=== PATIENT | female | born 1965 | race Caucasian/White ===

== ENCOUNTER → 2018-10-01 | Outpatient (REF) | payer OTHER ==
[2018-10-01 17:55] LABS: BASO # 0.1 10^3/uL (0.0-0.2); BASO % 1.3 % (0.0-1.0); EOS # 0.1 10^3/uL (0.0-0.50); EOS % 2.8 % (0.0-3.0); HEMATOCRIT 44.5 % (36.0-47.0); HEMOGLOBIN 14.2 g/dl (12.0-15.5); LYMPH # 1.4 10^3/uL (1.5-4.5); LYMPH % 30.8 % (24.0-44.0); MEAN CORPUSCULAR HEMOGLOBIN 29.2 pg (27.0-33.0); MEAN CORPUSCULAR HGB CONC 31.9 g/dl (32.0-36.5); MEAN CORPUSCULAR VOLUME 91.6 fl (80.0-96.0); MONO # 0.4 10^3/uL (0.0-0.8); NEUTROPHILS # 2.7 10^3/uL (1.8-7.7); NEUTROPHILS % 57.1 % (36.0-66.0); PLATELET COUNT, AUTOMATED 283 10^3/uL (150-450); RED BLOOD COUNT 4.86 10^6/uL (4.00-5.40); WHITE BLOOD COUNT 4.7 10^3/uL (4.0-10.0)
[2018-10-01 17:58] LABS: ALBUMIN 4.2 GM/DL (3.2-5.2); ALT/SGPT 28 U/L (12-78); BILIRUBIN,TOTAL 0.2 MG/DL (0.2-1.0); BLOOD UREA NITROGEN 15 MG/DL (7-18); CALCIUM LEVEL 9.6 MG/DL (8.5-10.1); CARBON DIOXIDE LEVEL 31 MEQ/L (21-32); CHLORIDE LEVEL 104 MEQ/L (98-107); CREATININE FOR GFR 0.82 MG/DL (0.55-1.30); GLOMERULAR FILTRATION RATE > 60.0 (>51); GLUCOSE, FASTING 79 MG/DL (70-100); POTASSIUM SERUM 3.8 MEQ/L (3.5-5.1); SODIUM LEVEL 141 MEQ/L (136-145); TOTAL PROTEIN 7.5 GM/DL (6.4-8.2)
[2018-10-01 18:16] LABS: FOLATE 15.9 NG/ML; VITAMIN B12 LEVEL 656 PG/ML
== END ==
LOC: M LABNEURO 14:44
PROVIDERS: ATTEND Psychiatry & Neurology Neurology
DX: G35 Multiple sclerosis (principal)

== ENCOUNTER → 2020-12-13 | Outpatient (CLI) | payer MEDICARE ==
--- NOTE | 2020-12-15 00:32 | ECWPNPC ---
PATIENT NAME: BERENICE KHALIL : 1965 GENDER: FEMALE VISIT DATE: 12/13/2020 DISCHARGE DATE: 12/13/20 0000 VISIT LOCKED DATE TIME: PHYSICIAN: ALLI JOHNSON RESOURCE: ALLI JOHNSON REASON FOR APPOINTMENT 1. BOTOX FOR MIGRAINES HISTORY OF PRESENT ILLNESS DEPRESSION SCREENING: PHQ-2 (2015 EDITION) LITTLE INTEREST OR PLEASURE IN DOING THINGS?NOT AT ALL FEELING DOWN, DEPRESSED, OR HOPELESS?NOT AT ALL TOTAL SCORE0 GENERAL: HPI 55-YEAR-OLD FEMALE IN FOR INITIAL PAIN CONSULT REGARDING BOTOX FOR HER MIGRAINES. PATIENT HAS HAD BOTOX INJECTIONS IN THE PAST AND THEY WERE SUCCESSFUL EVIDENCED BY DECREASED MIGRAINE HEADACHES. SHE RATES HER PAIN CURRENTLY AT A 3 OUT OF 10 BUT STATES THAT IT CAN GET HIGH A 10 OUT OF 10. SHE DESCRIBES HER PAIN SHARP, TENDER, THROBBING, AND TENSION.. - -. FALL RISK SCREENING: SCREENING : NO FALLS REPORTED IN THE LAST YEAR. PAIN SCREENING: PATIENT HAS A COMPLAINT OF ACUTE OR CHRONIC PAIN :YES LOCATION OF PAIN:HEAD, NECK, BOTH SHOULDERS INTENSITY OF PAIN (SCALE OF 1 TO 10):3 PAIN GETS HIGH A TEN. WHAT DOES YOUR PAIN FEEL LIKE:SHARP, TENDER, THROBBING, OTHER TENSION DURATION:INTERMITTENT PAIN IS INCREASED BY:ACTIVITIES NOISE, LIGHT PAIN IS DECREASED BY:USE OF PAIN MEDICATIONS JANEE, DULCEALT AND FIORECET NURSING NOTE: - -. PAIN CENTER INTAKE QUESTIONS: DO YOU HAVE A HISTORY OF MRSA? :NO DO YOU TAKE A BLOOD THINNERS? :NO DO YOU HAVE ANY BLEEDING DISORDERS? :NO ANY NEW NUMBNESS OR WEAKNESS IN YOUR LEGS OR ARMS? :NO ANY PACEMAKER,DEFIBRILLATOR, OR DORSAL COLUMN STIMULATOR? :NO DO YOU HAVE ANY RASHES OR OPEN SORES? :NO ARE YOU ALLERGIC TO IV DYE? :NO ARE YOU DIABETIC? :NO ANY NEW PROBLEMS WITH YOUR MEDICATIONS? :NO HAVE YOU RECEIVED A VACCINE IN THE PAST 30 DAYS? :NO SECOND COVID VACCINATION 10/07/2020 DO YOU PLAN TO RECEIVE A VACCINE IN THE NEXT 21 DAYS? :NO DO YOU NEED ANY PRESCRIPTION? :NO DO YOU TAKE ANY IMMUNOSUPPRESSIVE MEDICATIONS? :NO IS THERE A CHANCE YOU COULD BE ? :NO ARE YOU BREAST FEEDING? :NO CURRENT MEDICATIONS TAKING TECFIDERA 240 MG TABLET ORALLY TWICE A DAY TAKING ZONISAMIDE 50 MG CAPSULE 1 CAPSULE ORALLY DAILY IN THE MORNING TAKING ZONISAMIDE 100 MG CAPSULE 1 CAPSULE ORALLY BEFORE BEDTIME TAKING CYMBALTA 30 MG CAPSULE DELAYED RELEASE PARTICLES 1 CAPSULE ORALLY BID TAKING AMANTADINE HCL 100 MG CAPSULE 1 CAPSULE ORALLY BID TAKING DITROPAN XL 10 MG TABLET EXTENDED RELEASE 24 HOUR 1 TABLET ORALLY ONCE A DAY TAKING PAMELOR 10 MG CAPSULE 1 CAPSULE ORALLY TWICE DAILY AT HS TAKING ACETAMINOPHEN 500 MG CAPSULE 1 CAPSULE NEEDED ORALLY EVERY 6 HRS NEEDED MEDICATION LIST REVIEWED AND RECONCILED WITH THE PATIENT PAST MEDICAL HISTORY MULTIPLE SCLEROSIS MIGRAINE WITHOUT AURA MALAISE AND FATIGUE ALLERGIES N.K.D.A. SURGICAL HISTORY SALBADOR 12/03/05 FAMILY HISTORY FATHER: MOTHER: ALIVE SIBLINGS: ALIVE SON(S): ALIVE 2 BROTHER(S) , 1 SISTER(S) - HEALTHY. 2 SON(S) - HEALTHY. SOCIAL HISTORY GENERAL: TOBACCO USE ARE YOU A:NONSMOKER LATEX QUESTIONNAIRE LATEX ALLERGY : HAVE YOU EVER DEVELOPED ANY TYPE OF REACTION AFTER HANDLING LATEX PRODUCTS SUCH RUBBER GLOVES, CONDOMS, DIAPHRAGMS, BALLOONS, SOCKS, OR UNDERWEAR?NO LATEX ALLERGY : HAVE YOU EVER DEVELOPED ANY TYPE OF REACTION DURING OR AFTER DENTAL APPOINTMENT, VAGINAL/RECTAL EXAMINATION, SURGICAL PROCEDURE, OR ANY OTHER EXPOSURE?NO LATEX RISK : HAVE YOU EVER HAD ANY DIFFICULTY BREATHING OR HIVES AFTER EATING OR HANDLING ANY FRUITS, OR VEGETABLES; SUCH KIWI, BANANAS, STONE FRUITS, OR CHESTNUTSNO LATEX RISK : DO YOU HAVE A PREVIOUS PERSONAL HISTORY OF MORE THAN NINE SURGERIES, SPINA BIFIDA, OR REPEATED CATHERIZATIONS? NO LATEX RISK : ARE YOU FREQUENTLY EXPOSED TO LATEX PRODUCTS IN YOUR OCCUPATION?NO DATE ASKED : 12/13/2020 ALCOHOL USE: NO. RECREATIONAL DRUG USE DRUG USE?NO LANGUAGE LANGUAGES SPOKEN:MEXICAN EDUCATION LEVEL OF EDUCATION:PROFESSIONAL SCHOOLS/MASTERS/PHD LEARNING BARRIERS / SPECIAL NEEDS BARRIERS TO LEARNING?NO HEARING IMPAIRED?NO VISION IMPAIRED?NO COGNITIVELY IMPAIRED?NO READINESS TO LEARN?YES LEARNING PREFERENCES?NO LEARNING CAPABILITIES PRESENT?YES EMOTIONAL BARRIERS?NO SPECIAL DEVICES?NO COMMERCIAL DOOR INSTALLER NEEDED?NO HOSPITALIZATION/MAJOR DIAGNOSTIC PROCEDURE FOR SURGERY REVIEW OF SYSTEMS CONSTITUTIONAL: ANY RECENT FEVER NO . CHILLS NO . WEIGHT CHANGE OF UNKNOWN REASONS NO . MUSCULOSKELETAL: ANY UNUSUAL JOINT PAIN OR SWELLING NOT MENTIONED NO . SYSTEMIC LUPUS NO . ANY NEUROMUSCULAR DISORDER NOT MENTIONED NO . LYME DISEASE NO . GASTROENTEROLOGY: ANY NEW CHANGE IN BOWEL CONTROL? NO . HISTORY OF LIVER DISORDER NOT MENTIONED NO . HISTORY OF UNUSUAL ABDOMINAL PAIN OR CRAMPING NOT MENTIONED NO . NO CONSTIPATION. GENITOURINARY: ANY NEW CHANGE IN BLADDER CONTROL? NO . ANY RENAL/KIDNEY CONDITON NOT MENTIONED NO . NEUROLOGY: HISTORY OF TBI NOT MENTIONED NO . OTHER NEW NUMBNESS OR PAIN PATTERNS NOT MENTIONED NO . NEW ONSET DIZZINESS OR NEUROLOGICAL CHANGES NOT MENTIONED NO . HISTORY OF SEVERE HEADACHES NOT MENTIONED NO . HISTORY OF STROKE OR NEUROLOGICAL DISORDER NOT MENTIONED NO . CARDIOLOGY: HEART SURGERY NO . CONGESTIVE HEART FAILURE/FLUID OVERLOAD NOT MENTIONED NO . HISTORY OF CHEST PAIN,IRREGULAR HEART BEAT NOT MENTIONED NO . RESPIRATORY: SHORTNESS OF BREATH ON EXERTION, WHEEZES, UNUSUAL COUGH NOT MENTIONED NO . ENDOCRINOLOGY: ADRENAL GLAND OR THYROID DISORDERS NOT MENTIONED NO . UNUSUAL URINATION, DIZZINESS OR LETHARGY NOT MENTIONED NO . VITAL SIGNS WT 165.4 LBS, HT 70 IN, BMI 23.73 INDEX, BP 128/75 MM HG, HR 106 /MIN, RR 18 /MIN, TEMP 98.2 F, OXYGEN SAT % 94%, SAFE IN ENV? (Y/N) YES, NA INITIALS SD 13:22, REVIEWED BY: PAWEL MENESES MA. EXAMINATION GENERAL EXAMINATION: GENERALNO ACUTE DISTRESS, WELL NOURISHED AND HYDRATED. PSYCHAPPROPRIATE MOOD AND AFFECT . LUNGS:CLEAR TO AUSCULTATION BILATERALLY, NO WHEEZES, RHONCHI, RALES. HEART:NO MURMURS, REGULAR RATE AND RHYTHM. ASSESSMENTS MIGRAINE WITHOUT AURA AND WITH STATUS MIGRAINOSUS, NOT INTRACTABLE - G43.001 (PRIMARY) TREATMENT MIGRAINE WITHOUT AURA AND WITH STATUS MIGRAINOSUS, NOT INTRACTABLE NOTES: 55-YEAR-OLD FEMALE IN FOR INITIAL PAIN CONSULT REGARDING BOTOX INJECTIONS FOR HER MIGRAINES. GIVEN PRESENTING SYMPTOMS RECOMMEND BOTOX INJECTIONS WITH POST PROCEDURAL FOLLOW-UP. PATIENT HAS EXPRESSED UNDERSTANDING OF AND WAS IN AGREEMENT WITH TREATMENT PLAN. GIVEN TIME TO ASK QUESTIONS AND EXPRESS CONCERNS. OTHERS NOTES: PRINTED AND REVIEWED PRE PROCEDURE INFORMATION, PATIENT VERBALIZED UNDERSTANDING MOUNA RUBIO . PROCEDURE CODES [id number] ESTABILISHED PATIENT [facility] CHARGE DISPOSITION & COMMUNICATION FOLLOW UP POST PROCEDURE (REASON: BOTOX INJECTIONS OF 155 UNITS INTO BILATERAL GEOMETRICIAN, PROCERUS, FRONTALIS, TEMPORALIS, OCCIPITALIS, PARASPINAL AND TRAPEZIUS MUSCLES EVERY 3 MONTHS) ELECTRONICALLY SIGNED BY ANDERSON LOZA ON 12/14/2020 AT 01:29 PM EDT DISCLAIMER : THIS IS A VISIT SUMMARY EXTRACTED FROM THE [employer] CHART. IT IS NOT A COPY OF THE [employer] PROGRESS NOTE. CRISTIAN
== END ==
LOC: M PAIN 13:00
PROVIDERS: ATTEND Family Medicine
DX: G43.001 Migraine without aura, not intractable, with status migrainosus (principal); G35 Multiple sclerosis; R53.81 Other malaise; R53.83 Other fatigue; Z79.899 Other long term (current) drug therapy

== ENCOUNTER → 2021-01-14 | Outpatient (CLI) | payer MEDICARE | LOC: M LABSMTC 11:24 | PROVIDERS: ATTEND Anesthesiology | DX: Z01.818 Encounter for other preprocedural examination (principal); Z20.822 Contact with and (suspected) exposure to COVID-19 ==

== ENCOUNTER → 2021-01-19 | Outpatient (CLI) | payer MEDICARE, BC ==
[~2021-01-19] MED LIST: BOTOX THERAPEUTIC 100 UNIT VIAL (J0585 PER 1 UNIT) IM ONE; diazePAM 5MG TABLET As Ordered ONE
--- NOTE | 2021-01-21 03:11 | ECWPNPC ---
PATIENT NAME: BERENICE KHALIL : 1965 GENDER: FEMALE VISIT DATE: 01/19/2021 DISCHARGE DATE: 01/19/21 1243 VISIT LOCKED DATE TIME: PHYSICIAN: JOSE FRANCISCO HORAN MD RESOURCE: JOSE FRANCISCO HORAN MD REASON FOR APPOINTMENT 1. BOTOX HISTORY OF PRESENT ILLNESS GENERAL: HPI -.. - -. FALL RISK SCREENING: SCREENING : NO FALLS REPORTED IN THE LAST YEAR. PAIN SCREENING: PATIENT HAS A COMPLAINT OF ACUTE OR CHRONIC PAIN :YES LOCATION OF PAIN:HEAD, NECK, BOTH SHOULDERS INTENSITY OF PAIN (SCALE OF 1 TO 10):0 PAIN GETS HIGH A TEN. WHAT DOES YOUR PAIN FEEL LIKE:SHARP, TENDER, THROBBING, OTHER UP TO SEVERAL DAYS IN DURATION DURATION:INTERMITTENT PAIN IS INCREASED BY:ACTIVITIES NOISE, LIGHT PAIN IS DECREASED BY:USE OF PAIN MEDICATIONS DARKNESS, MAXALT AND FIORECET PLAN/GOALS/TREATMENT/INTERVENTION/FOLLOW UP:SEE PLAN NURSING NOTE: - -. PAIN CENTER INTAKE QUESTIONS: DO YOU HAVE A HISTORY OF MRSA? :NO DO YOU TAKE A BLOOD THINNERS? :NO DO YOU HAVE ANY BLEEDING DISORDERS? :NO ANY NEW NUMBNESS OR WEAKNESS IN YOUR LEGS OR ARMS? :NO ANY PACEMAKER,DEFIBRILLATOR, OR DORSAL COLUMN STIMULATOR? :NO DO YOU HAVE ANY RASHES OR OPEN SORES? :NO ARE YOU ALLERGIC TO IV DYE? :NO ARE YOU DIABETIC? :NO ANY NEW PROBLEMS WITH YOUR MEDICATIONS? :NO HAVE YOU RECEIVED A VACCINE IN THE PAST 30 DAYS? :NO DO YOU PLAN TO RECEIVE A VACCINE IN THE NEXT 21 DAYS? :NO DO YOU TAKE ANY IMMUNOSUPPRESSIVE MEDICATIONS? :NO ANY HISTORY OF SEIZURES? :NO ANY HISTORY OF CARDIAC ISSUES OR EVENTS? :NO DO YOU HAVE ANY KIDNEY OR LIVER DISEASE? :NO DO YOU HAVE SLEEP APNEA? :NO ANY RECENT HEAD INJURY? :NO DO YOU HAVE ANY NEW INFECTIONS? :NO IS THERE A CHANCE YOU COULD BE ? :NO ARE YOU BREAST FEEDING? :NO WHEN DID YOU LAST EAT? : ------0700 WHEN DID YOU LAST DRINK? : ----1030 WHAT DID YOU LAST DRINK? : -----WATER NAME OF PERSON DRIVING YOU HOME? : DO YOU HAVE ANY OTHER QUESTIONS OR CONCERNS? : NO CURRENT MEDICATIONS TAKING TECFIDERA 240 MG TABLET ORALLY TWICE A DAY TAKING ZONISAMIDE 50 MG CAPSULE 1 CAPSULE ORALLY DAILY IN THE MORNING TAKING ZONISAMIDE 100 MG CAPSULE 1 CAPSULE ORALLY BEFORE BEDTIME TAKING CYMBALTA 30 MG CAPSULE DELAYED RELEASE PARTICLES 1 CAPSULE ORALLY BID TAKING AMANTADINE HCL 100 MG CAPSULE 1 CAPSULE ORALLY BID TAKING PAMELOR 10 MG CAPSULE 1 CAPSULE ORALLY TWICE DAILY AT HS TAKING BOTOX 100 UNIT SOLUTION RECONSTITUTED FOR IM INJECTION AT THE HEAD, NECK AND SHOULDER MUSCLES ICD G43.709 BOTOX SCHEDULED 01/19/2021 AT 10:40 AM. TAKING [id number] 50-300-40 MG CAPSULE 1 CAPSULE NEEDED ORALLY EVERY 4 HRS NOT-TAKING DITROPAN XL 10 MG TABLET EXTENDED RELEASE 24 HOUR 1 TABLET ORALLY ONCE A DAY NOT-TAKING ACETAMINOPHEN 500 MG CAPSULE 1 CAPSULE NEEDED ORALLY EVERY 6 HRS NEEDED PAST MEDICAL HISTORY MULTIPLE SCLEROSIS MIGRAINE WITHOUT AURA MALAISE AND FATIGUE ALLERGIES N.K.D.A. SOCIAL HISTORY GENERAL: TOBACCO USE ARE YOU A:NONSMOKER LATEX QUESTIONNAIRE LATEX ALLERGY : HAVE YOU EVER DEVELOPED ANY TYPE OF REACTION AFTER HANDLING LATEX PRODUCTS SUCH RUBBER GLOVES, CONDOMS, DIAPHRAGMS, BALLOONS, SOCKS, OR UNDERWEAR?NO LATEX ALLERGY : HAVE YOU EVER DEVELOPED ANY TYPE OF REACTION DURING OR AFTER DENTAL APPOINTMENT, VAGINAL/RECTAL EXAMINATION, SURGICAL PROCEDURE, OR ANY OTHER EXPOSURE?NO LATEX RISK : HAVE YOU EVER HAD ANY DIFFICULTY BREATHING OR HIVES AFTER EATING OR HANDLING ANY FRUITS, OR VEGETABLES; SUCH KIWI, BANANAS, STONE FRUITS, OR CHESTNUTSNO LATEX RISK : DO YOU HAVE A PREVIOUS PERSONAL HISTORY OF MORE THAN NINE SURGERIES, SPINA BIFIDA, OR REPEATED CATHERIZATIONS? NO LATEX RISK : ARE YOU FREQUENTLY EXPOSED TO LATEX PRODUCTS IN YOUR OCCUPATION?NO DATE ASKED : 01/18/2021 ALCOHOL USE: NO. RECREATIONAL DRUG USE DRUG USE?NO ISLAM [id number] DANISH ANABAPTISM LANGUAGE LANGUAGES SPOKEN:PUERT[place] RICAN EDUCATION LEVEL OF EDUCATION:PROFESSIONAL SCHOOLS/MASTERS/PHD LEARNING BARRIERS / SPECIAL NEEDS BARRIERS TO LEARNING?NO HEARING IMPAIRED?NO VISION IMPAIRED?NO COGNITIVELY IMPAIRED?NO READINESS TO LEARN?YES LEARNING PREFERENCES?NO LEARNING CAPABILITIES PRESENT?YES EMOTIONAL BARRIERS?NO SPECIAL DEVICES?NO PLANT GUARD NEEDED?NO VITAL SIGNS WT 167 LBS, HT 70 IN, BMI 23.96 INDEX, BP 122/59 MM HG, HR 105 /MIN, RR 18 /MIN, TEMP 97.8 F, OXYGEN SAT % 98%, NA INITIALS SC 10:49. EXAMINATION GENERAL: A HISTORY AND PHYSICAL EXAM ON THE PATIENT WAS DONE ON 12/13/2020 (DATE OF ORIGINAL ASSESSMENT) IN PREPARATION OF SURGERY/PROCEDURE. I HAVE NOW REASSESSED THIS PATIENT'S HEALTH STATUS AND PERFORMED AN UPDATED EXAM TODAY. ALL CHANGES IN THE PATIENT'S HISTORY, PHYSICAL EXAM, PRE-EXISTING CONDITONS, AND INDICATIONS/CONTRAINDICATIONS TO THE PLANNED PROCEDURE AND ANESTHESIA ARE DOCUMENTED AND EVALUATED BELOW. I ATTEST TO THE ADEQUACY AND APPROPRIATENESS OF MY ASSESSMENT, AND CONFIRM THE NECESSITY FOR THE PLANNED PROCEDURE. THE PATIENT IS ALERT, ORIENTED TIMES THREE AND COOPERATIVE. LUNGS ARE CLEAR TO AUSCULTATION. HEART SHOWS REGULAR RHYTHM, NO MURMURS AND NO GALLOPS. ASSESSMENTS CHRONIC MIGRAINE - G43.709 (PRIMARY) TREATMENT CHRONIC MIGRAINE MEDICATION: PAIN VALIUM TAB 10MG ORALLY (DIAZEPAM)MURRAY CORCORAN 01/19/2021 11:33:38 AM > VERIFIED ADRI KIRBY 01/19/2021 11:41:22 AM > GIVEN COMPLETION OF PROCEDURAL VISIT WHEN MEETS CRITERIAMURRAY CORCORAN 01/19/2021 12:49:53 PM > 1245 CRITERIA MET OTHERS NOTES: 01/18/21 PAT COMPLETED. Lamin BRIONES RN BSN. PROCEDURES PAIN NURSING RECORD PROCEDURE IN ROOM 1045, PHYSICIAN IN ROOM 1211, START 1213, FINISH 1227, PHYSICIAN OUT OF ROOM 1228, OUT OF ROOM 1245, ECG N/A, PATIENT SHIELDED N/A, SAFETY STRAP N/A, PREP ALCOHOL DR. HORAN, DRESSING N/A LOC: 1. ALERT, ORIENTED RESP: 1. REGULAR, NO DYSPNEA ADRI KIRBY 01/19/2021 12:00:22 PM > COLOR: 1. PINK ADRI KIRBY 01/19/2021 12:00:30 PM > SKIN: 1. WARM, DRY ADRI KIRBY 01/19/2021 12:00:47 PM > POSITION: 5. SITTING 2. SUPINE VITALS: GAVE VALIUM 131/65 77 98% ON RA 18 RESP 01/19/2021 1244 117/61-94-18-97% NOTES Claribel KIRBY RN COMPLETION OF PROCEDURE APPOINTMENT: POST PAIN 0, DRESSING SITE NO DRESSING, IV N/A, GAIT STEADY, TEACHING COMPLETED, PATIENT ACKNOWLEDGES UNDERSTANDING YES PATIENT VERBALIZES UNDERSATNDING OF POST PROCEDURE INSTRUCTIONS REVIEWED, PROCEDURE APPOINTMENT COMPLETED AT 1245 BY: Rach MATOS RN PN BOTOX INJECTIONS FIRST INJECTION PRE PROCEDURE DIAGNOSIS CHRONIC MIGRAINE HEADACHES POST PROCEDURE DIAGNOSIS CHRONIC MIGRAINE HEADACHES PROCEDURE BOTOX INJECTION AT THE HEAD, NECK AND SHOULDERS SURGEON DR. JOSE FRANCISCO HORAN DRUM SANDER OFFBEARER NONE ANESTHESIA NONE PRE PROCEDURE NOTE THE PATIENT HAS HISTORY OF CHRONIC MIGRAINE HEADACHES. I EVALUATED THE PATIENT AND REVIEWED THE CHART. I WENT OVER THE RISKS, ALTERNATIVES, AND BENEFITS ASSOCIATED WITH THIS PROCEDURE. THE PATIENT WOULD LIKE TO PROCEED AND GAVE CONSENT TO PERFORM THE PROCEDURE. THE PATIENT DENIES UNEXPLAINABLE WEIGHT LOSS, FEVER, CHILLS, OR NEW CHANGES IN URINARY OR BOWEL CONTROL. SHE HAS BEEN SURFFERING FROM CHRONIC MIGRAINES FOR MANY YEARS. SHE HAS HAD BOTOX INJECTIONS IN THE PAST. SHE HAS NOT RECIEVED THEM FOR OVER 6 MONTHS. SHE IS HAVING HEADACHES EVERY DAY. SHE IS AT OUR FACILITY TODAY TO HAVE BOTOX. THE PATIENT HAS USED THE MEDICATIONS LISTED IN THE CHART TO TREAT THE HEADACHES FOR MANY MONTHS BUT THE HEADACHES PERSIST DESCRIBED ABOVE. THE PATIENT IS COVID-19 NEGATIVE DESCRIPTION OF PROCEDURE THE PATIENT WAS BROUGHT TO THE PROCEDURE ROOM AND PLACED IN THE SUPINE POSITION. A TIMEOUT WAS PERFORMED WHERE THE CONSENTED SITE WAS VERIFIED WITH EVERYONE IN THE ROOM FOR THE PROCEDURE I USED A SOLUTION OF 5 UNITS OF BOTOX PER EACH 0.1 ML OF THE SOLUTION. I USED A 30-GAUGE NEEDLE TO INJECT THE SOLUTION AT THE SELECTED LOCATIONS. I INJECTED FIRST THE RIGHT AND LEFT LABORER CHEESEMAKING MUSCLES. THE LANDMARK FOR BOTH INJECTIONS WAS APPROXIMATELY 1 CM ABOVE THE SUPERIOR MEDIAL EDGE OF THE EYEBROW. AFTER THESE TWO INJECTIONS, I INJECTED THE PROCERUS MUSCLE AT THE MIDLINE POINT BETWEEN THESE FIRST TWO INJECTIONS. THEN I PROCEEDED TO INJECT THE RIGHT AND LEFT FRONTALIS MUSCLE. TWO INJECTIONS WERE DONE IN EACH SIDE. THE FIRST INJECTION WAS DONE APPROXIMATELY 2 CM ABOVE THE FIRST INJECTION OF THE LABORER CHEESEMAKING. THE SECOND INJECTION WAS DONE APPROXIMATELY 1.5 CM LATERAL TO THIS FIST INJECTION OF THE FRONTALIS OF EACH SIDE. AFTER THE INJECTIONS OVER THE FOREHEAD WERE DONE, THE PATIENT'S HEAD WAS TURNED TO THE LEFT SIDE AND WE STARTED TO WORK WITH THE RIGHT TEMPORALIS MUSCLE. FIRST INJECTION WAS DONE IN A VERTICAL LINE OF THE TRAGUS APPROXIMATELY 3 CM ABOVE THE TRAGUS. THE SECOND INJECTION WAS DONE APPROXIMATELY 2 CM ABOVE THE FIRST INJECTION. THE THIRD INJECTION WAS DONE APPROXIMATELY 1 CM FORWARD FROM THIS VERTICAL LINE CREATED AT THE LEVEL OF THE TRAGUS, MCC BETWEEN THESE TWO INJECTIONS. THE FOURTH INJECTION WAS DONE APPROXIMATELY 1.5 CM BACK FROM THE SECOND INJECTION TO THE TEMPORALIS IN LINE TO THE MIDPORTION OF THE EAR. THEN, WE PROCEEDED TO INJECT THE LEFT TEMPORALIS MUSCLE. WE CLEANED THE AREA WITH ALCOHOL AND PROCEEDED TO PERFORM THE SAME FOR INJECTIONS DESCRIBED ABOVE BUT IN THE LEFT TEMPORALIS MUSCLE USING THE SAME LANDMARKS. AFTER THESE INJECTIONS WERE DONE, THE PATIENT WAS SEATED. FIRST, WE STARTED TO INJECT THE LEFT AND RIGHT OCCIPITALIS MUSCLE. I INJECTED AT THE FOLLOWING PLACES IN THE RIGHT AND LEFT MUSCLE. THE FIRST INJECTION WAS DONE AT THE MIDPOINT POSITION BETWEEN THE MASTOID PROCESS AND THE INION OF THE OCCIPITAL PROTUBERANCE. THE SECOND INJECTION WAS DONE APPROXIMATELY 1.5 CM SUPERIOR AND LATERAL OF THIS POINT. THE THIRD INJECTION WAS DONE APPROXIMATELY 1.5 CM SUPERIOR AND MEDIAL TO THIS FIRST INJECTION. NEXT, I PROCEEDED TO INJECT THE RIGHT AND LEFT PARASPINAL MUSCLES. LANDMARK OF THE INJECTION WERE APPROXIMATELY: FIRST INJECTION 3 CM BELOW THE INION AND 1 CM LATERAL TO THE MIDLINE AND SECOND INJECTION AT EACH SIDE WAS DONE APPROXIMATELY 1.5 CM SUPERIOR AND LATERAL OF THE FIRST INJECTION. THE LAST GROUP OF INJECTIONS WAS DONE OVER THE RIGHT AND LEFT TRAPEZIUS MUSCLE OVER THE SHOULDERS AREA. THE FIRST INJECTION WAS DONE AT THE MIDPOINT BETWEEN THE INFLECTION POINT BETWEEN THE NECK AND SHOULDER AND THE ACROMION. THE SECOND AND THIRD INJECTIONS WERE DONE APPROXIMATELY 2.5 CM LATERAL AND MEDIAL FROM THIS FIRST INJECTION. SAME TARGETS WERE USED IN THE RIGHT AND LEFT SIDE. IN TOTAL, I INJECTED 155 UNITS OF BOTOX. THE MEDICATIONS WERE VERIFIED WITH THE NURSE. PROCEDURE WAS DONE WITHOUT EVIDENCE OF PARESTHESIA OR ANY COMPLICATIONS. THE PATIENT TOLERATED THE PROCEDURE VERY WELL. ESTIMATED BLOOD LOSS WAS LESS THAN 5 ML. THE PATIENT WAS SENT TO THE RECOVERY ROOM FOR OBSERVATIONS. INJECTIONS WERE DONE AFTER CLEANING WITH ALCOHOL, USING ASEPTIC TECHNIQUES POST PROCEDURE NOTE THE PROCEDURE DONE WAS DISCUSSED WITH THE PATIENT. THE PATIENT WILL BE SEEN IN A FOLLOW UP IN THE NEXT FEW WEEKS. I AM LOOKING FOR LONG LASTING PAIN RELIEF FOR THE PATIENT WITH THIS INTERVENTION. INSTRUCTIONS WERE GIVEN, QUESTIONS WERE ANSWERED, AND THE PATIENT EXPRESSED UNDERSTANDING AND AGREES WITH THE PLAN. I, SILVINO HANSEN, DOCUMENTED THE ABOVE INFORMATION ACTING A SCRIBE FOR DR. HORAN. I HAVE REVIEWED THE ABOVE DOCUMENT, WRITTEN BY SILVINO HANSEN, PUBLICATIONS MANAGER, AND I VERIFY THAT IT IS ACCURATE PROCEDURE CODES 33406 CHEMODENERV MUSC MIGRAINE DISPOSITION & COMMUNICATION FOLLOW UP FOLLOW UP WITH MARKER MAKER (REASON: POST BOTOX INJECTIONS TO HEAD, NECK AND SHOULDER AREA) ELECTRONICALLY SIGNED BY JOSE FRANCISCO HORAN MD, MD ON 01/20/2021 AT 03:49 PM EDT DISCLAIMER : THIS IS A VISIT SUMMARY EXTRACTED FROM THE [employer] CHART. IT IS NOT A COPY OF THE [employer] PROGRESS NOTE. CRISTIAN
== END ==
LOC: M PAIN 10:40
PROVIDERS: ATTEND Anesthesiology
DX: G43.709 Chronic migraine without aura, not intractable, without status migrainosus (principal); G35 Multiple sclerosis; Z79.899 Other long term (current) drug therapy
CPT/HCPCS: 64615; J0585

== ENCOUNTER → 2021-02-09 | Outpatient (CLI) | payer MEDICARE ==
--- NOTE | 2021-02-11 07:33 | ECWPNPC ---
PATIENT NAME: BERENICE KHALIL : 1965 GENDER: FEMALE VISIT DATE: 02/09/2021 DISCHARGE DATE: 02/09/21 1428 VISIT LOCKED DATE TIME: PHYSICIAN: ALLI JOHNSON RESOURCE: ALLI JOHNSON REASON FOR APPOINTMENT 1. POST BOTOX HISTORY OF PRESENT ILLNESS GENERAL: HPI 55-YEAR-OLD FEMALE IN FOR POST BOTOX INJECTION FOLLOW-UP. PATIENT REPORTS A SIGNIFICANT DECREASE IN HER MIGRAINES SINCE INJECTIONS. SHE RATES HER PAIN CURRENTLY AT A 2 OUT OF 10 DESCRIBES IT THROBBING.. -. FALL RISK SCREENING: SCREENING : NO FALLS REPORTED IN THE LAST YEAR. PAIN SCREENING: PATIENT HAS A COMPLAINT OF ACUTE OR CHRONIC PAIN :YES LOCATION OF PAIN:NECK INTENSITY OF PAIN (SCALE OF 1 TO 10):2 WHAT DOES YOUR PAIN FEEL LIKE:THROBBING DURATION:INTERMITTENT PAIN IS INCREASED BY:OTHERS LIGHTS, NOISES, WEATHER, DEHYDRATION PAIN IS DECREASED BY:USE OF PAIN MEDICATIONS, OTHERS DARKNESS, MAXALT, FIORICET, REST, EYE MASK, QUIET NURSING NOTE: -. PAIN CENTER INTAKE QUESTIONS: DO YOU HAVE A HISTORY OF MRSA? :NO DO YOU TAKE A BLOOD THINNERS? :NO DO YOU HAVE ANY BLEEDING DISORDERS? :NO ANY NEW NUMBNESS OR WEAKNESS IN YOUR LEGS OR ARMS? :NO ANY PACEMAKER,DEFIBRILLATOR, OR DORSAL COLUMN STIMULATOR? :NO DO YOU HAVE ANY RASHES OR OPEN SORES? :NO ARE YOU ALLERGIC TO IV DYE? :NO ARE YOU DIABETIC? :NO ANY NEW PROBLEMS WITH YOUR MEDICATIONS? :NO HAVE YOU RECEIVED A VACCINE IN THE PAST 30 DAYS? :NO DO YOU PLAN TO RECEIVE A VACCINE IN THE NEXT 21 DAYS? :NO DO YOU NEED ANY PRESCRIPTION? :NO DO YOU TAKE ANY IMMUNOSUPPRESSIVE MEDICATIONS? :NO DO YOU HAVE ANY KIDNEY OR LIVER DISEASE? :NO IS THERE A CHANCE YOU COULD BE ? :NO ARE YOU BREAST FEEDING? :NO CURRENT MEDICATIONS TAKING TECFIDERA 240 MG TABLET ORALLY TWICE A DAY TAKING ZONISAMIDE 50 MG CAPSULE 1 CAPSULE ORALLY DAILY IN THE MORNING TAKING ZONISAMIDE 100 MG CAPSULE 1 CAPSULE ORALLY BEFORE BEDTIME TAKING CYMBALTA 30 MG CAPSULE DELAYED RELEASE PARTICLES 1 CAPSULE ORALLY BID TAKING AMANTADINE HCL 100 MG CAPSULE 1 CAPSULE ORALLY BID TAKING PAMELOR 10 MG CAPSULE 1 CAPSULE ORALLY BID TAKING BOTOX 100 UNIT SOLUTION RECONSTITUTED FOR IM INJECTION AT THE HEAD, NECK AND SHOULDER MUSCLES ICD G43.709 BOTOX SCHEDULED 01/19/2021 AT 10:40 AM. TAKING [id number] 50-300-40 MG CAPSULE 1 CAPSULE NEEDED ORALLY EVERY 4 HRS TAKING MAXALT 10 MG TABLET 1 TABLET ORALLY ONCE A DAY NEEDED NOT-TAKING DITROPAN XL 10 MG TABLET EXTENDED RELEASE 24 HOUR 1 TABLET ORALLY ONCE A DAY NOT-TAKING ACETAMINOPHEN 500 MG CAPSULE 1 CAPSULE NEEDED ORALLY EVERY 6 HRS NEEDED MEDICATION LIST REVIEWED AND RECONCILED WITH THE PATIENT PAST MEDICAL HISTORY MULTIPLE SCLEROSIS MIGRAINE WITHOUT AURA MALAISE AND FATIGUE ALLERGIES N.K.D.A. SOCIAL HISTORY GENERAL: TOBACCO USE ARE YOU A:NONSMOKER LATEX QUESTIONNAIRE LATEX ALLERGY : HAVE YOU EVER DEVELOPED ANY TYPE OF REACTION AFTER HANDLING LATEX PRODUCTS SUCH RUBBER GLOVES, CONDOMS, DIAPHRAGMS, BALLOONS, SOCKS, OR UNDERWEAR?NO LATEX ALLERGY : HAVE YOU EVER DEVELOPED ANY TYPE OF REACTION DURING OR AFTER DENTAL APPOINTMENT, VAGINAL/RECTAL EXAMINATION, SURGICAL PROCEDURE, OR ANY OTHER EXPOSURE?NO LATEX RISK : HAVE YOU EVER HAD ANY DIFFICULTY BREATHING OR HIVES AFTER EATING OR HANDLING ANY FRUITS, OR VEGETABLES; SUCH KIWI, BANANAS, STONE FRUITS, OR CHESTNUTSNO LATEX RISK : DO YOU HAVE A PREVIOUS PERSONAL HISTORY OF MORE THAN NINE SURGERIES, SPINA BIFIDA, OR REPEATED CATHERIZATIONS? NO LATEX RISK : ARE YOU FREQUENTLY EXPOSED TO LATEX PRODUCTS IN YOUR OCCUPATION?NO DATE ASKED : 01/18/2021 ALCOHOL USE: NO. RECREATIONAL DRUG USE DRUG USE?NO [employer] [id number] [employer] LANGUAGE LANGUAGES SPOKEN:UPPER SORBIAN EDUCATION LEVEL OF EDUCATION:PR[employer]ESSIONAL SCHOOLS/MASTERS/PHD LEARNING BARRIERS / SPECIAL NEEDS CHANGE FROM LAST VISIT?NO BARRIERS TO LEARNING?NO HEARING IMPAIRED?NO VISION IMPAIRED?NO COGNITIVELY IMPAIRED?NO READINESS TO LEARN?YES LEARNING PREFERENCES?NO LEARNING CAPABILITIES PRESENT?YES EMOTIONAL BARRIERS?NO SPECIAL DEVICES?NO WINDOW SHADE ESTIMATOR NEEDED?NO REVIEW OF SYSTEMS CONSTITUTIONAL: ANY RECENT FEVER NO . CHILLS NO . WEIGHT CHANGE OF UNKNOWN REASONS NO . GASTROENTEROLOGY: NEW UNEXPLAINABLE CHANGES IN BOWEL CONTROL NO . CONSTIPATION NO . GENITOURINARY: ANY NEW CHANGE IN BLADDER CONTROL? NO . NEUROLOGY: NEW ONSET DIZZINESS OR NEUROLOGICAL CHANGES NOT MENTIONED NO . NEW NUMBNESS OR PAIN PATTERNS NOT MENTIONED AND PERTINENT TO TODAY'S VISIT NO . CARDIOLOGY: NEW CHEST PRESSURE NO . PATIENT DENIES NO . RESPIRATORY: UNEXPLAINABLE COUGH NO . NEW SHORTNESS OF BREATH NO . VITAL SIGNS WT 167.8 LBS, HT 70 IN, BMI 24.07 INDEX, BP 130/72 MM HG, HR 97 /MIN, RR 18 /MIN, TEMP 98.3 F, OXYGEN SAT % 97%, SAFE IN ENV? (Y/N) YES, REVIEWED BY: Teresa ROSARIO RN. EXAMINATION GENERAL EXAMINATION: GENERALNO ACUTE DISTRESS, WELL NOURISHED AND HYDRATED. PSYCHAPPROPRIATE MOOD AND AFFECT . LUNGS:CLEAR TO AUSCULTATION BILATERALLY, NO WHEEZES, RHONCHI, RALES. HEART:NO MURMURS, REGULAR RATE AND RHYTHM. ASSESSMENTS OTHER CHRONIC PAIN - G89.29 (PRIMARY) MIGRAINE WITHOUT AURA AND WITH STATUS MIGRAINOSUS, NOT INTRACTABLE - G43.001, RISK: (NULL) TREATMENT OTHER CHRONIC PAIN PAIN PROCEDURE LOGDATE OF [id number]/2021PROCEDURE:BOTOX INJECTIONS TO HEAD, NECK, AND SHOULDERSAMOUNT OF PRE SEDATEVALIUM 10MGRESULT:PATIENT REPORTS SIGNIFICANT DECREASE IN HER MIGRAINES. MIGRAINE WITHOUT AURA AND WITH STATUS MIGRAINOSUS, NOT INTRACTABLE NOTES: 55-YEAR-OLD FEMALE IN FOR POST BOTOX INJECTION FOLLOW-UP. GIVEN PRESENTING SYMPTOMS RECOMMEND FOLLOW-UP IN 3 MONTHS FOR BOTOX INJECTIONS. PATIENT IS EXPRESSED UNDERSTANDING OF AND WAS IN AGREEMENT WITH TREATMENT PLAN. GIVEN TIME TO ASK QUESTIONS AND EXPRESS CONCERNS. PROCEDURE CODES FA211 ESTABILISHED PATIENT [facility] CHARGE DISPOSITION & COMMUNICATION FOLLOW UP 3 MONTHS (REASON: BOTOX INJECTION ) ELECTRONICALLY SIGNED BY ANDERSON LOZA ON 02/10/2021 AT 10:35 AM EDT DISCLAIMER : THIS IS A VISIT SUMMARY EXTRACTED FROM THE [employer] CHART. IT IS NOT A COPY OF THE [employer] PROGRESS NOTE. MTDD
== END ==
LOC: M PAIN 14:00
PROVIDERS: ATTEND Family Medicine
DX: G89.29 Other chronic pain (principal); G43.001 Migraine without aura, not intractable, with status migrainosus; G35 Multiple sclerosis; R53.83 Other fatigue; R53.81 Other malaise; Z79.899 Other long term (current) drug therapy

== ENCOUNTER → 2021-04-27 | Outpatient (CLI) | payer MEDICARE | LOC: M LABSMTC 11:54 | PROVIDERS: ATTEND Anesthesiology | DX: Z20.822 Contact with and (suspected) exposure to COVID-19 (principal) ==

== ENCOUNTER → 2021-05-02 | Outpatient (CLI) | payer MEDICARE ==
[~2021-05-02] MED LIST changes: -diazePAM 5MG TABLET As Ordered ONE
== END ==
LOC: M PAIN 10:40
PROVIDERS: ATTEND Anesthesiology
DX: G43.709 Chronic migraine without aura, not intractable, without status migrainosus (principal); G35 Multiple sclerosis; Z79.899 Other long term (current) drug therapy
CPT/HCPCS: 64615; J0585

== ENCOUNTER → 2021-06-01 | Outpatient (CLI) | payer MEDICARE | LOC: M PAIN 11:30 | PROVIDERS: ATTEND Anesthesiology | DX: G89.29 Other chronic pain (principal); G43.909 Migraine, unspecified, not intractable, without status migrainosus; G35 Multiple sclerosis; R53.83 Other fatigue; R53.81 Other malaise; Z79.899 Other long term (current) drug therapy ==

== ENCOUNTER → 2021-09-12 | Outpatient (CLI) | payer MEDICARE | LOC: M PAIN 10:40 | PROVIDERS: ATTEND Anesthesiology | DX: G43.709 Chronic migraine without aura, not intractable, without status migrainosus (principal); G35 Multiple sclerosis; R53.81 Other malaise; R53.83 Other fatigue; Z79.899 Other long term (current) drug therapy | CPT/HCPCS: 64615; J0585 ==

== ENCOUNTER 2023-08-15 09:10 | Outpatient (CLI) | payer MEDICARE, BC, OTHER ==
[~2023-08-15] VITALS: Ht 177.8 cm; Wt 77.7 kg
[2023-08-15] MEDS ORDERED: diphenhydrAMINE 25MG CAP PO ONE (09:30)
[2023-08-15] MEDS ORDERED: methylPREDNISolone 125MG 2ML VIAL IV ONE (09:30)
[2023-08-15] MEDS ORDERED: OCRELIZUMAB 300 MG in NS 250 ML IV ONE (09:30)
[2023-08-15] MEDS ORDERED: ACETAMINOPHEN TAB 650MG DOSE (2X325MG) PO ONE (09:30)
[2023-08-15 09:40] VITALS: BP 129/71; O2SAT 97
[2023-08-15 11:00] VITALS: BP 118/64; O2SAT 100
[2023-08-15 11:30] VITALS: BP 126/70; O2SAT 99
[2023-08-15 12:00] VITALS: BP 147/79; O2SAT 97
[2023-08-15 13:00] VITALS: BP 125/58; O2SAT 98
[2023-08-15 14:10] VITALS: BP 118/58; O2SAT 100
== END 2023-08-15 14:10 ==
LOC: M INFU 09:10
PROVIDERS: ATTEND Psychiatry & Neurology Neurology
DX: G35 Multiple sclerosis (principal)
CPT/HCPCS: 96365; 96366; 96375; J2350; J2930

== ENCOUNTER 2023-08-29 10:00 | Outpatient (CLI) | payer MEDICARE, BC ==
[~2023-08-29] VITALS: Ht 177.8 cm; Wt 77.3 kg
[2023-08-29 10:37] VITALS: BP 144/77; TEMP 97; O2SAT 97
[2023-08-29] MEDS: methylPREDNISolone 125MG 2ML VIAL IV ONE (10:46)
[2023-08-29] MEDS: ACETAMINOPHEN TAB 650MG DOSE (2X325MG) PO ONE (10:47)
[2023-08-29] MEDS: diphenhydrAMINE 25MG CAP PO ONE (10:47)
[2023-08-29] MEDS: OCRELIZUMAB 300 MG in NS 250 ML IV ONE (10:48)
[2023-08-29 11:30] VITALS: BP 130/69; TEMP 98; O2SAT 98
[2023-08-29 12:00] VITALS: BP 126/68; TEMP 98.1; O2SAT 95
[2023-08-29 12:30] VITALS: BP 129/71; TEMP 98; O2SAT 96
[2023-08-29 13:40] VITALS: BP 131/72; TEMP 99; O2SAT 97
== END 2023-09-03 13:50 ==
LOC: M INFU 10:00
PROVIDERS: ATTEND Psychiatry & Neurology Neurology
DX: G35 Multiple sclerosis (principal)
CPT/HCPCS: 96365; 96366; 96367; J2350; J2930

== ENCOUNTER 2024-02-13 10:03 | Outpatient (CLI) | payer MEDICARE, BC ==
[~2024-02-13] VITALS: Ht 177.8 cm; Wt 75.0 kg
[2024-02-13 10:25] VITALS: BP 121/64; O2SAT 97
[2024-02-13] MEDS: ACETAMINOPHEN TAB 650MG DOSE (2X325MG) PO ONE (10:30)
[2024-02-13] MEDS: diphenhydrAMINE 25MG CAP PO ONE (10:30)
[2024-02-13] MEDS: methylPREDNISolone 125MG 2ML VIAL IV ONE (10:30)
[2024-02-13] MEDS: OCRELIZUMAB 600 MG in NS 500 ML IV ONE (10:54)
[2024-02-13 11:30] VITALS: BP 113/60; O2SAT 96
[2024-02-13 12:00] VITALS: BP 125/66; O2SAT 97
[2024-02-13 12:28] VITALS: BP 133/51; O2SAT 95
[2024-02-13 13:00] VITALS: BP 145/57; O2SAT 95
[2024-02-13 15:15] VITALS: BP 121/73; O2SAT 97
== END 2024-02-13 15:15 | disposition home or self-care (01) ==
LOC: M INFU 10:03
PROVIDERS: ATTEND Psychiatry & Neurology Neurology
DX: G35 Multiple sclerosis (principal)
CPT/HCPCS: 96365; 96366; 96375; J2350; J2919

== ENCOUNTER 2024-08-17 09:35 | Outpatient (CLI) | payer MEDICARE ==
[~2024-08-17] VITALS: Ht 177.8 cm; Wt 72.7 kg
[2024-08-17 10:00] VITALS: BP 141/65; O2SAT 97
[2024-08-17] MEDS ORDERED: OCRELIZUMAB 300 MG in NS 250 ML IV ONE (10:00)
[2024-08-17] MEDS: methylPREDNISolone 125MG 2ML VIAL IV ONE (10:08)
[2024-08-17] MEDS: ACETAMINOPHEN 650 MG PO ONE (10:08)
[2024-08-17] MEDS: diphenhydrAMINE 25MG CAP PO ONE (10:08)
[2024-08-17] MEDS: OCRELIZUMAB 600 MG in NS 500 ML IV ONE (10:54)
[2024-08-17 12:30] VITALS: BP 114/60; O2SAT 96
[2024-08-17 14:34] VITALS: BP 125/62; O2SAT 98
[2024-08-17 15:33] VITALS: BP 111/56; O2SAT 97
== END 2024-08-17 15:40 ==
LOC: M INFU 09:35
PROVIDERS: ATTEND Psychiatry & Neurology Neurology
DX: G35 Multiple sclerosis (principal)
CPT/HCPCS: 96365; 96366; 96375; J2350; J2919

== ENCOUNTER 2025-02-17 10:46 | Outpatient (CLI) | payer MEDICARE, BC ==
[~2025-02-17] VITALS: Ht 177.8 cm; Wt 73.0 kg
[2025-02-17] VITALS (7 sets, daily range): BP systolic 113–132; BP diastolic 58–77; O2SAT 96–100
[2025-02-17] MEDS: ACETAMINOPHEN 325 MG TAB PO ONE (11:10)
[2025-02-17] MEDS: OCRELIZUMAB 600 MG in NS 500 ML IV ONE (11:32)
== END 2025-02-17 16:40 | disposition home or self-care (01) ==
LOC: M INFU 10:46
PROVIDERS: ATTEND Psychiatry & Neurology Neurology
DX: G35 Multiple sclerosis (principal)
CPT/HCPCS: 96365; 96366; 96375; J2350; J2919